=== PATIENT | female | born 1970 | race Two or more races ===

== ENCOUNTER 2016-06-21 16:16 | Inpatient (IN) | payer MEDICARE, MEDICAID ==
--- NOTE | 2016-06-21 16:27 | ED Physician Chart ---
Chief Complaint/HPI - Patient Information Date Seen:: 06/21/16 Time Seen:: 16:22 Chief Complaint:: difficult behavior and ?abd pain History of Present Illness:: pt sent from psych facility for difficult behavior. was stiking out at staff. she also c/o abd pains earlier today. no known fever nor n/v/d. has a colostomy ..uncertain why it was placed. pt seems to speak no burkinan. unclear what is current mental state but she seems mostly cooperative on arrival. abd doesnt seem tndr and ostomy site looks clean and noninfected. Historian:: Patient Review of Systems - Review of Systems General/Constitutional: No fever, No chills, No weight loss, No weakness, No diaphoresis, No edema, No loss of appetite Skin: No skin lesions, No rash, No bruising Head: No headache, No light-headedness Eyes: No loss of vision, No pain, No diplopia ENT: No earache, No nasal drainage, No sore throat, No tinnitus Neck: No neck pain, No swelling, No thyromegaly, No stiffness, No mass noted Cardio Vascular: No chest pain, No palpitations, No PND, No orthopnea, No edema Pulmonary: No SOB, No cough, No sputum, No wheezing GI: No nausea, No vomiting, No diarrhea, Pain (??), No melena, No hematochezia, No constipation, No hematemesis G/U: No dysuria, No frequency, No hematuria Musculoskeletal: No bone or joint pain, No back pain, No muscle pain Endocrine: No polyuria, No polydipsia Psychiatric: Prior psych history, No depression, No anxiety, No suicidal ideation, Other (aggressive behavior) Hematopoietic: No bruising, No lymphadenopathy Allergic/Immuno: No urticaria, No angioedema Neurological: No syncope, No focal symptoms, No weakness, No paresthesia, No headache, No seizure, No dizziness, No confusion, No vertigo Past Medical History - Past Medical History Past Medical History: Asthma/COPD, Dyslipidemia, PUD/GERD, Other (pt cant give hx. unclear why she had colostomy. anemia, low na) Social History: Care Facility Surgical History: other (colostomy) Psychiatricy History: Schizophrenia Medication: Reviewed Family Medical History - Family Member Mother History Unknown: Yes Ethnicity: Non- Living Status: Unknown Other Medical History: Patient unable to give information due to her condition, confused and disoriented. Physical Exam - Physical Examination General/Constitutional: Awake, Well-developed, well-nourished, Alert, No distress, Non-toxic appearing, Ambulatory Other Gen/Cons comments:: pt seems alert and oriented but language barrier limits hx... Head: Atraumatic Eyes: Lids, conjuctiva normal, PERRL, EOMI Skin: Nl inspection, No rash, No skin lesions, No ecchymosis, Well hydrated, No lymphadenopathy ENMT: External ears, nose nl, Nasal exam nl, Lips, teeth, gums nl Neck: Nontender, Full ROM w/o pain, No JVD, No nuchal rigidity, No bruit, No mass, No stridor Respiratory: Nl effort/Exclusion, Clear to Auscultation, No Wheeze/Rhonchi/Rales Cardio Vascular: RRR, No murmur, gallop, rubs, NL S1 S2 GI: No tenderness/rebounding/guarding, No organomegaly, No hernia, Normal BS's, Nondistended, No mass/bruits, No McBurney tenderness : No CVA tenderness Extremities: No tenderness or effusion, Full ROM, normal strength in all extremities, No edema, Normal digits & nails Neuro/Psych: Alert/oriented, DTR's symmetric, Normal sensory exam, Normal motor strength, Judgement/insight normal, Mood normal, Normal gait, No focal deficits Misc: normal gait, Normal back, No paraspinal tenderness Labs/Radiology/EKG Results - Lab Results Results: Laboratory Tests 06/21/16 06/21/16 06/21/16 16:29 16:29 16:32 WBC 8.8 RBC 4.70 Hgb 13.3 Hct 38.6 MCV 82.1 MCH 28.3 MCHC Differential 34.5 RDW 14.0 Plt Count 330 MPV 7.4 Neutrophils % 50.4 Lymphocytes % 41.1 Monocytes % 5.3 Eosinophils % 2.3 Basophils % 0.9 Sodium Potassium Chloride Carbon Dioxide Anion Gap BUN Creatinine Est GFR ( Amer) Est GFR (Non-Af Amer) BUN/Creatinine Ratio Glucose Calcium Magnesium Total Bilirubin AST ALT Alkaline Phosphatase Ammonia Creatine Kinase Troponin I B-Natriuretic Peptide Total Protein Albumin Globulin Albumin/Globulin Ratio Triglycerides Cholesterol LDL Cholesterol Direct HDL Cholesterol Amylase Lipase Vitamin B12 Folic Acid TSH Urine Source CLEAN C Urine Color YELLOW Urine Clarity CLEAR Urine pH 6.0 Ur Specific [place] 1.010 Urine Protein NEGATIVE Urine Glucose (UA) NEGATIVE Urine Ketones NEGATIVE Urine Blood NEGATIVE Urine Nitrate NEGATIVE Urine Bilirubin NEGATIVE Urine Urobilinogen 0.2 Ur Leukocyte Esterase NEGATIVE Urine RBC NONE SEEN Urine WBC NONE SEEN Ur Epithelial Cells NONE SEEN Urine Bacteria NONE SEEN Urine Test NEGATIVE RPR Hepatitis A IgM Ab Hep Bs Antigen Hep B Core IgM Ab Hepatitis C Antibody 06/21/16 06/21/16 06/21/16 16:32 16:32 16:32 WBC RBC Hgb Hct MCV MCH MCHC Differential RDW Plt Count MPV Neutrophils % Lymphocytes % Monocytes % Eosinophils % Basophils % Sodium 136 Potassium 4.1 Chloride 109 H Carbon Dioxide 24.0 Anion Gap 7.1 BUN 20 Creatinine 0.9 Est GFR ( Amer) > 60.0 Est GFR (Non-Af Amer) > 60.0 BUN/Creatinine Ratio 22.2 Glucose 114 H Calcium 9.2 Magnesium Total Bilirubin 0.2 L AST 10 L ALT 8 Alkaline Phosphatase 101 Ammonia Creatine Kinase Troponin I B-Natriuretic Peptide Total Protein 6.9 Albumin 4.0 Globulin 2.9 Albumin/Globulin Ratio 1.4 Triglycerides 180 H Cholesterol 160 LDL Cholesterol Direct 100 HDL Cholesterol 43 Amylase Lipase Vitamin B12 Folic Acid TSH 0.41 Urine Source Urine Color Urine Clarity Urine pH Ur Specific [place] Urine Protein Urine Glucose (UA) Urine Ketones Urine Blood Urine Nitrate Urine Bilirubin Urine Urobilinogen Ur Leukocyte Esterase Urine RBC Urine WBC Ur Epithelial Cells Urine Bacteria Urine Test RPR Hepatitis A IgM Ab Negative Hep Bs Antigen Negative Hep B Core IgM Ab Negative Hepatitis C Antibody 0.1 06/21/16 06/21/16 06/21/16 16:32 16:32 16:32 WBC RBC Hgb Hct MCV MCH MCHC Differential RDW Plt Count MPV Neutrophils % Lymphocytes % Monocytes % Eosinophils % Basophils % Sodium Potassium Chloride Carbon Dioxide Anion Gap BUN Creatinine Est GFR ( Amer) Est GFR (Non-Af Amer) BUN/Creatinine Ratio Glucose Calcium Magnesium Total Bilirubin AST ALT Alkaline Phosphatase Ammonia Creatine Kinase 65 Troponin I B-Natriuretic Peptide Total Protein Albumin Globulin Albumin/Globulin Ratio Triglycerides Cholesterol LDL Cholesterol Direct HDL Cholesterol Amylase 45 Lipase 98 H Vitamin B12 Folic Acid TSH Urine Source Urine Color Urine Clarity Urine pH Ur Specific [place] Urine Protein Urine Glucose (UA) Urine Ketones Urine Blood Urine Nitrate Urine Bilirubin Urine Urobilinogen Ur Leukocyte Esterase Urine RBC Urine WBC Ur Epithelial Cells Urine Bacteria Urine Test RPR NONREACTIVE Hepatitis A IgM Ab Hep Bs Antigen Hep B Core IgM Ab Hepatitis C Antibody 06/21/16 06/23/16 06/23/16 16:32 06:30 06:30 WBC 7.5 RBC 4.65 Hgb 13.0 Hct 38.3 MCV 82.3 MCH 28.0 MCHC Differential 34.0 RDW 14.1 Plt Count 330 MPV 7.9 Neutrophils % 50.2 Lymphocytes % 39.0 Monocytes % 6.4 Eosinophils % 3.6 Basophils % 0.8 Sodium 140 Potassium 4.2 Chloride 115 H Carbon Dioxide 24.7 Anion Gap 4.5 L BUN 19 Creatinine 0.8 Est GFR ( Amer) > 60.0 Est GFR (Non-Af Amer) > 60.0 BUN/Creatinine Ratio 23.8 Glucose 95 Calcium 9.4 Magnesium 1.9 Total Bilirubin 0.3 AST 11 L ALT 9 Alkaline Phosphatase 97 Ammonia Creatine Kinase Troponin I 0.01 B-Natriuretic Peptide Total Protein 6.5 Albumin 3.8 Globulin 2.7 Albumin/Globulin Ratio 1.4 Triglycerides Cholesterol LDL Cholesterol Direct HDL Cholesterol Amylase Lipase Vitamin B12 Folic Acid TSH Urine Source Urine Color Urine Clarity Urine pH Ur Specific [place] Urine Protein Urine Glucose (UA) Urine Ketones Urine Blood Urine Nitrate Urine Bilirubin Urine Urobilinogen Ur Leukocyte Esterase Urine RBC Urine WBC Ur Epithelial Cells Urine Bacteria Urine Test RPR Hepatitis A IgM Ab Hep Bs Antigen Hep B Core IgM Ab Hepatitis C Antibody 06/23/16 06/23/16 06/23/16 06:30 06:30 06:30 WBC RBC Hgb Hct MCV MCH MCHC Differential RDW Plt Count MPV Neutrophils % Lymphocytes % Monocytes % Eosinophils % Basophils % Sodium Potassium Chloride Carbon Dioxide Anion Gap BUN Creatinine Est GFR ( Amer) Est GFR (Non-Af Amer) BUN/Creatinine Ratio Glucose Calcium Magnesium Total Bilirubin AST ALT Alkaline Phosphatase Ammonia 52 Creatine Kinase Troponin I B-Natriuretic Peptide 9.2 Total Protein Albumin Globulin Albumin/Globulin Ratio Triglycerides Cholesterol LDL Cholesterol Direct HDL Cholesterol Amylase Lipase Vitamin B12 425 Folic Acid 12.3 TSH Urine Source Urine Color Urine Clarity Urine pH Ur Specific [place] Urine Protein Urine Glucose (UA) Urine Ketones Urine Blood Urine Nitrate Urine Bilirubin Urine Urobilinogen Ur Leukocyte Esterase Urine RBC Urine WBC Ur Epithelial Cells Urine Bacteria Urine Test RPR Hepatitis A IgM Ab Hep Bs Antigen Hep B Core IgM Ab Hepatitis C Antibody 06/23/16 06/26/16 06/26/16 06:30 05:56 05:56 WBC 7.5 RBC 4.63 Hgb 12.8 Hct 38.2 MCV 82.5 MCH 27.5 MCHC Differential 33.4 RDW 14.0 Plt Count 276 MPV 8.0 Neutrophils % 59.2 Lymphocytes % 30.4 Monocytes % 6.6 Eosinophils % 3.3 Basophils % 0.5 Sodium 139 Potassium 3.9 Chloride 112 H Carbon Dioxide 26.1 Anion Gap 4.8 L BUN 20 Creatinine 0.8 Est GFR ( Amer) > 60.0 Est GFR (Non-Af Amer) > 60.0 BUN/Creatinine Ratio 25.0 Glucose 106 H Calcium 9.6 Magnesium 2.0 Total Bilirubin AST ALT Alkaline Phosphatase Ammonia Creatine Kinase Troponin I B-Natriuretic Peptide Total Protein Albumin Globulin Albumin/Globulin Ratio Triglycerides Cholesterol LDL Cholesterol Direct HDL Cholesterol Amylase Lipase 80 Vitamin B12 Folic Acid TSH Urine Source Urine Color Urine Clarity Urine pH Ur Specific [place] Urine Protein Urine Glucose (UA) Urine Ketones Urine Blood Urine Nitrate Urine Bilirubin Urine Urobilinogen Ur Leukocyte Esterase Urine RBC Urine WBC Ur Epithelial Cells Urine Bacteria Urine Test RPR Hepatitis A IgM Ab Hep Bs Antigen Hep B Core IgM Ab Hepatitis C Antibody 06/26/16 05:56 WBC RBC Hgb Hct MCV MCH MCHC Differential RDW Plt Count MPV Neutrophils % Lymphocytes % Monocytes % Eosinophils % Basophils % Sodium Potassium Chloride Carbon Dioxide Anion Gap BUN Creatinine Est GFR ( Amer) Est GFR (Non-Af Amer) BUN/Creatinine Ratio Glucose Calcium Magnesium Total Bilirubin AST ALT Alkaline Phosphatase Ammonia 64 H Creatine Kinase Troponin I B-Natriuretic Peptide Total Protein Albumin Globulin Albumin/Globulin Ratio Triglycerides Cholesterol LDL Cholesterol Direct HDL Cholesterol Amylase Lipase Vitamin B12 Folic Acid TSH Urine Source Urine Color Urine Clarity Urine pH Ur Specific [place] Urine Protein Urine Glucose (UA) Urine Ketones Urine Blood Urine Nitrate Urine Bilirubin Urine Urobilinogen Ur Leukocyte Esterase Urine RBC Urine WBC Ur Epithelial Cells Urine Bacteria Urine Test RPR Hepatitis A IgM Ab Hep Bs Antigen Hep B Core IgM Ab Hepatitis C Antibody - Radiology Results Results: ct abd/p- nad, massive stool ? constipation ED Septic Shock - . Is Septic Shock (SBP<90, OR Lactate>4 mmol\L) present?: No Reassessment (Disposition) - Reassessment Reassessment:: case dw dr camp who is admitting to med/sx floor. Reassessment Condition:: Unchanged - Diagnosis Diagnosis:: 1 abdominal pain 2 elevated lipase r/o pancreatitis 3 constipation/ ?fecal impaction 4 psychiatric issues/difficult behavior - Patient Disposition Admitted to:: Med/Surg Condition at Disposition:: Unchanged ED Discharge Plan - Patient Disposition Admit/Discharge/Transfer: Acute Care w/in this hosp Condition at Disposition: Stable
[2016-06-21] MEDS ORDERED: Haloperidol Lactate 5 mg/mL 1mL Vial IM ONE (16:32)
[2016-06-21] MEDS ORDERED: Haloperidol Lactate 5 mg/mL 1mL Vial IM PRN (16:32)
[2016-06-21 16:40] LABS: % BASOPHILS 0.9 % (0.0-2.0); % EOSINOPHILS 2.3 % (0.0-5.0); % LYMPHOCYTES 41.1 % (20.0-50.0); % MONOCYTES 5.3 % (2.0-10.0); % NEUTROPHILS 50.4 % (40.0-80.0); HEMATOCRIT 38.6 % (35.0-45.0); HEMOGLOBIN 13.3 gm/dL (11.7-15.5); MEAN CELL VOLUME 82.1 fl (81-100); MEAN CORPUSCULAR HEMOGLOBIN 28.3 pg (27.0-31.0); MEAN CORPUSCULAR HGB CONC 34.5 pg (28.0-36.0); MEAN PLATELET VOLUME 7.4 fl; NEUTROPHILE ABSOLUTE 4.4 Th/cmm (1.8-8.0); PLATELET COUNT 330 Th/cmm (150-400); WHITE BLOOD COUNT 8.8 Th/cmm (4.8-10.8)
[2016-06-21] MEDS ORDERED: Haloperidol Lactate 5 mg/mL 1mL Vial ONE (16:47)
[2016-06-21 16:59] LABS: URINE BILIRUBIN NEGATIVE (NEGATIVE); URINE BLOOD NEGATIVE (NEGATIVE); URINE COLOR YELLOW; URINE GLUCOSE (UA) NEGATIVE (NEGATIVE); URINE KETONE NEGATIVE (NEGATIVE); URINE PROTEIN NEGATIVE (NEGATIVE); URINE UROBILINOGEN 0.2 E.U./dL (0.2 - 1.0)
[2016-06-21 17:00] LABS: URINE BACTERIA NONE SEEN /hpf (NONE SEEN); URINE EPITHELIAL CELLS NONE SEEN /lpf (FEW); URINE RBC NONE SEEN /hpf (0-5); URINE WBC NONE SEEN /hpf (0-5)
[2016-06-21 17:16] LABS: ALB/GLOB RATIO 1.4 (1.0-1.8); ALKALINE PHOSPHATASE 101 U/L (34-104); ANION GAP 7.1 (7.0-16.0); BILIRUBIN,TOTAL 0.2 mg/dL (0.3-1.0); BUN - UREA NITROGEN 20 mg/dL (7-25); BUN/CREATININE RATIO 22.2; CALCIUM SERUM 9.2 mg/dL (8.6-10.3); CHLORIDE 109 mEq/L (98-107); CHOLESTEROL 160 mg/dL (<200); CREATININE - SERUM 0.9 mg/dL (0.6-1.2); GLUCOSE 114 mg/dL (70-105); POTASSIUM SERUM 4.1 mEq/L (3.5-5.1); SGOT 10 U/L (13-39); SGPT/ALT 8 U/L (7-52); SODIUM SERUM 136 mEq/L (136-145); TRIGLYCERIDES 180 mg/dL (<150)
[2016-06-21] MEDS ORDERED: Sodium Chloride 0.9% 1,000 ML IV ONE (17:32)
[2016-06-21 17:50] LABS: AMYLASE SERUM 45 U/L (29-103)
[2016-06-21] MEDS ORDERED: Non-Formulary Item 1 EA (Mylanta 30 ML) PO PRN (19:27)
[2016-06-21] MEDS ORDERED: Magnesium Hydroxide (MOM) 30 mL UDC PO PRN (19:27)
[2016-06-21] MEDS ORDERED: D5-0.45NS 1,000 ML IV SCH (19:30)
[2016-06-21] MEDS ORDERED: Ipratropium Neb 0.5 mg/2.5 mL UD HHN PRN (19:30)
[2016-06-21] MEDS ORDERED: Albuterol Nebulizer 2.5mg/3mL HHN PRN (19:30)
[2016-06-21] MEDS ORDERED: Morphine Sulfate 2 mg/mL 1mL Syr IVP PRN (19:32)
[2016-06-21] MEDS ORDERED: Maalox 30 mL Cup PO PRN (19:32)
[2016-06-21] MEDS ORDERED: Non-Formulary Item 1 EA (Trazodone Hcl [Trazodone Hcl] 100 MG) PO SCH (21:00)
[2016-06-21] MEDS ORDERED: FENOFIBRATE NANOCRYSTALLIZED 48 MG PO SCH (21:00)
[2016-06-21 22:39] VITALS: BP 143/82
[2016-06-22] MEDS: Levothyroxine 0.125 Mg Tab PO SCH (06:42)
[2016-06-22] MEDS: Multivitamin w/ Minerals Tab PO SCH (08:21)
[2016-06-22] MEDS: Benztropine 1 MG TAB PO SCH ×2 (08:21→16:07)
[2016-06-22] MEDS ORDERED: LEVETIRACETAM 500 MG PO SCH (09:00)
[2016-06-22] MEDS ORDERED: Non-Formulary Item 1 EA (Cholecalciferol (Vitamin D3) [Vitamin D3] 1 TAB) PO SCH (09:00)
[2016-06-22 09:22] LABS: HEP B CORE IGM Negative (Negative); HEP C ANTIBODY 0.1 s/co ratio (0.0-0.9)
--- NOTE | 2016-06-22 09:58 | Diagnostic Imaging Report ---
CT abdomen and pelvis without intravenous contrast Indication: Abdominal pain Comparison: None, Technique: Axial images were obtained from the lung bases to the bilateral proximal femurs without IV contrast. Coronal reconstructions were made. total DLP: [id number], [id number] FINDINGS: Hypoventilatory and atelectatic changes of the lung bases are noted. Exam is limited due to motion. Assessment of the solid organs is also limited due to lack of IV contrast. No evidence of focal hepatic, splenic, or pancreatic lesions. No focal adrenal lesions. No evidence of hydronephrosis or nephrolithiasis. Postsurgical changes of the sigmoid colon region are noted. A left lower quadrant ostomy is noted. There is massive stool throughout the colon including within the left lower quadrant ostomy. The Appendix is not visualized. Postsurgical changes of midline anterior abdominal wall is also noted. No free air or free fluid. The osseous structures demonstrate no acute abnormalities. IMPRESSION: Massive amount of stool with left lower quadrant ostomy with massive amount of stool within the ostomy. Please correlate clinically for chronic constipation Postsurgical changes with evidence of prior sigmoidectomy.
--- NOTE | 2016-06-22 19:54 | History & Physical ---
ADMIT DATE: 06/22/2016 CHIEF COMPLAINT: Abdominal pain. HISTORY OF PRESENT ILLNESS: This is a 45-year-old old [place] female with history of seizure, asthma, hypercholesterolemia, schizoaffective disorder, obesity, previous abdominal surgery with colostomy, was admitted from nursing facility secondary to abdominal pain. The patient, apparently not taking care of herself and was complaining of severe pain. The patient was evaluated in the ER and admitted for further management. The patient is not a best historian. PAST MEDICAL HISTORY: As mentioned in history present illness. PAST SURGICAL HISTORY: Previous abdominal surgery. ALLERGIES: No known drug allergies. MEDICATIONS: The patient is on Tylenol, Cogentin, vitamin C, Colace, Tricor, Keppra, Synthroid, milk of magnesium, multivitamins, Mylanta, trazodone and clozapine. FAMILY HISTORY: Noncontributory. SOCIAL HISTORY: This is limited. REVIEW OF SYSTEMS: This is again limited. The patient is not cooperative, not answering any questions, cannot quite sit still. There is a sister, ____ Kai, at [phone]; ____ SHANEKA, . We will also try to get information from nursing staff at [facility], as well as from Dr. Cohen who normally follows the patient at nursing facility. PHYSICAL EXAMINATION: VITAL SIGNS: Blood pressure 130/94, respirations 18, pulse 90, temperature 97.4. GENERAL: Middle-aged female, morbidly obese. NECK: Supple. No mass. LUNGS: Equal breath sounds with few rhonchi. HEART: Regular rate rhythm without appreciable murmurs. ABDOMEN: Soft, nontender, globular. Positive colostomy in place. EXTREMITIES: Positive excoriations. NEUROLOGIC: Limited. LABORATORY DATA: WBC 8.8, hemoglobin 13.3, platelets 330. Sodium 136, potassium 4.1, BUN 20, creatinine 0.9, blood sugar was 114 and AST and ALT was 10 and 8, triglycerides 180, lipase 98. UA essentially negative. ASSESSMENT AND PLAN: Abdominal pain, mild rhabdomyolysis, constipation, status post colostomy, vitamin D deficiency, hypercholesterolemia, schizoaffective disorder, seizure, asthma, obesity, hypothyroidism. We will continue the patient on IV hydration and proton pump inhibitor. We will refer the patient to GI. We will review the patient's medications. We will also refer the patient to Psychiatry. We will keep the patient 1 to 1 for now secondary to instability. [facility]# [id number]
[2016-06-22] MEDS: Fenofibrate, Micronized 134 mg Cap PO SCH (21:00)
--- NOTE | 2016-06-22 22:25 | Admit Criteria Form ---
Admit Criteria Forms - Admit Criteria Diagnosis: ABDOMINAL PAIN Clinical Indications for Admission to Inpatient Care (Place 'X' for any and all applicable criteria): Admission is indicated for ANY ONE of the following(1)(2)(3)(4)(5): [X]I. Inpatient admission required rather than observation care (Also use Abdominal Pain: Observation Care, as appropriate) because of ANY ONE of the following: [ ]a) Severe pain requiring acute inpatient management [ ]b) Identification of etiology/finding that requires inpatient care (eg, aortic dissection, free air) [ ]c) Absent bowel sounds with complete ileus(6) [ ]d) Suspected toxic megacolon [ ]e) Severe electrolyte abnormalities requiring inpatient care [ ]f) High fever or infection requiring inpatient admission as indicated by ANY ONE of following(7)(8): [ ] i) Appropriate outpatient or observational care antimicrobial treatment unavailable, not effective, or not feasible [ ] ii) Documented bacteremia [ ] iii) Temperature > 104.9 degrees F (oral) [ ] iv) T >103.1 F (oral) or < 96.8 F(rectal) that does not respond to all emergency treatment measures [ ]g) Signs of intestinal obstruction [B] [ ]h) Hemodynamic instability [ ]i) IV fluid to replace significant ongoing losses (greater than 3 L/m2 per day) (12)(13) [ ]j) Percutaneous or open drainage (eg, abscess, biliary tract ) procedures [ ]k) Parenteral nutrition regimen that must be implemented on inpatient basis [X]l) Other condition,treatment or monitoring requiring inpatient admission. [ ]II. Peritoneal signs present [ ]III. Surgery needed that cannot be performed on an ambulatory basis. [ ]IV. Evaluation requires patient to not eat or drink for extended period ( eg, more than 24 hours). [ ]V. Contraindications and/or Inappropriate clinical situations for Observational Care in patients with abdominal pain, when ANY ONE of the following is required: [ ]a) Thorough evaluation is required to prevent catastrophic events due to delays in diagnosing (e.g.Mesenteric ischemia) 1,3 [ ]b) Patient with severe pathology or with chronic symptoms unlikely to improve in the ED stay (3) [ ]. General contraindications and/or Inappropriate clinical situations for Observational Care in patients with abdominal pain, when ANY ONE of the following is required: [ ]a) Prediction of prolongation of LOS based on ANY ONE of the following may be considered as a contraindication for observational care 2, 3, 4, 5, 6, 7, 8, 9, 10, 11 [ ]i) Age > 65 yrs. [ ]ii) Patient arriving by ambulance [ ]iii) Patient with high acuity [ ]iv) Patient requiring vital sign monitoring [ ]v) Patient on IV medication [ ]b) Systolic blood pressures 180mmHg 3,12 [ ]c) Patient with altered mental status including delirium and other alteration of consciousness, (3) [ ]d) Patient whose discharge disposition will be to a [facility] home or rehabilitation home should not be managed in Emergency Department Observation Unit. CMS rule requires 3 days hospital stay before such placement.3,13 [ ]e) Patient with failure to thrive due to broad array of etiologies 3,16,17 [ ]f) Inability to ambulate 3,14 Extended stay beyond goal length of stay may be needed for(2)(3): [ ]a) Persistent abdominal pain with suspected intra-abdominal process [ ]b) Diagnosed condition requiring continued stay (e.g., pancreatitis, complicated diverticulitis) [ ]c) Surgery (e.g., colectomy) The original [facility] content created by [employer] has been revised. The portions of the content which have been revised are identified through the use of italic text or in bold, and [facility] has neither reviewed nor approved the modified material.All other unmodified content is copyright [facility] [employer]. Please see references footnoted in the original [facility] edition 2016 Admit Criteria Met?: Yes
--- NOTE | 2016-06-23 04:27 | Consultation ---
DATE OF CONSULTATION: 06/22/2016 GASTROENTEROLOGY CONSULTATION REQUESTING PHYSICIAN: Jules Oneal M.D. REASON FOR CONSULTATION: Abdominal pain. HISTORY OF PRESENT ILLNESS: This is a 45-year-old female with history of psychiatric disorder, referred from a psychiatric facility to the ER for complaints of abdominal pain. She had a CT of the abdomen and pelvis that showed copious amount of stools associated with her left lower quadrant colostomy. There are also some postsurgical changes of the sigmoid colon. The patient was admitted. She was perhaps given stool softeners. She had large bowel movements. Her pain is not resolved. She is tolerating an oral diet. She has had no nausea or vomiting here. She is otherwise a poor historian. It is unknown whether she has had a previous colonoscopy. It is also unknown why she had a diverting colostomy. PAST MEDICAL HISTORY: As above. MEDICATIONS: Here are Tylenol p.r.n., Maalox p.r.n., albuterol p.r.n., vitamin C, Cogentin, Clozapine, Colace once daily, Tricor, adjuvant p.r.n., Keppra, Synthroid, Ativan p.r.n., milk of magnesia p.r.n., mineral oil daily, morphine p.r.n., Protonix, MiraLax, trazodone, and vitamin D. ALLERGIES: No known drug allergies. SOCIAL HISTORY: No recent tobacco, alcohol, or drugs. FAMILY HISTORY: Noncontributory. REVIEW OF SYSTEMS: A comprehensive 12-point review of systems was conducted, but it is only positive for those signs and symptoms present in history present illness. PHYSICAL EXAMINATION: VITAL SIGNS: Temperature of 97.4, blood pressure is 132/94, pulse is 90, and respirations 18, and O2 sats 100%. GENERAL: The patient is well-developed, well-nourished female in no acute distress. HEENT: Sclerae nonicteric. Oropharynx is clear. CARDIOVASCULAR: Regular rate and rhythm. LUNGS: Clear to auscultation bilaterally. ABDOMEN: Soft and intact. Left lower quadrant colostomy, draining mild stool. EXTREMITIES: No clubbing, cyanosis, or edema. RECTAL: Deferred. LABORATORY DATA AND IMAGING: Complete blood count is normal. Creatinine is 0.9. Liver enzymes are normal. Lipase was mildly elevated to 98. TSH normal. Urinalysis essentially clear. Hepatitis panel negative. CT of the abdomen and pelvis done last evening without contrast shows massive amount of stool within the left lower quadrant ostomy with massive amounts of stool within the colostomy, postsurgical changes with evidence of previous sigmoidectomy. IMPRESSION: 1. Abdominal pain, probably secondary to constipation, now improved after large bowel movement, also mildly elevated lipase, but CT did not show any pancreatitis. This may have been because of constipation. 2. History of diverting colostomy. 3. History of psychiatric disorder. RECOMMENDATIONS: 1. Stool softeners. 2. Check followup lipase level. 3. Check KUB in the morning to confirm that constipation is improved. 4. Diet as tolerated. 5. May need colonoscopy if not done previously, but outpatient workup is acceptable. Thank you, Dr. Jules Oneal, for involving us in the care of your patient. If you have any further questions, please call us. [facility]# [id number]
[2016-06-23] MEDS: Levothyroxine 0.125 Mg Tab PO SCH (06:36)
[2016-06-23 06:55] LABS: % BASOPHILS 0.8 % (0.0-2.0); % EOSINOPHILS 3.6 % (0.0-5.0); % MONOCYTES 6.4 % (2.0-10.0); % NEUTROPHILS 50.2 % (40.0-80.0); HEMATOCRIT 38.3 % (35.0-45.0); MEAN CELL VOLUME 82.3 fl (81-100); MEAN PLATELET VOLUME 7.9 fl; NEUTROPHILE ABSOLUTE 3.7 Th/cmm (1.8-8.0); PLATELET COUNT 330 Th/cmm (150-400); RED BLOOD COUNT 4.65 Mil/cmm (3.80-5.10); RED CELL DISTRIBUTION WIDTH 14.1 % (11.5-20.0); WHITE BLOOD COUNT 7.5 Th/cmm (4.8-10.8)
[2016-06-23 07:19] LABS: ALB/GLOB RATIO 1.4 (1.0-1.8); ALKALINE PHOSPHATASE 97 U/L (34-104); ANION GAP 4.5 (7.0-16.0); BILIRUBIN,TOTAL 0.3 mg/dL (0.3-1.0); BUN - UREA NITROGEN 19 mg/dL (7-25); BUN/CREATININE RATIO 23.8; CALCIUM SERUM 9.4 mg/dL (8.6-10.3); CARBON DIOXIDE 24.7 mEq/L (21.0-31.0); CHLORIDE 115 mEq/L (98-107); CREATININE - SERUM 0.8 mg/dL (0.6-1.2); GLUCOSE 95 mg/dL (70-105); MAGNESIUM 1.9 mg/dL (1.9-2.7); POTASSIUM SERUM 4.2 mEq/L (3.5-5.1); SGOT 11 U/L (13-39); SGPT/ALT 9 U/L (7-52); SODIUM SERUM 140 mEq/L (136-145)
[2016-06-23] MEDS: POLYETHYLENE GLYCOL 3350 17 GM PACK PO SCH (08:39)
[2016-06-23] MEDS: Vitamin D3 2,000 IU SGL PO SCH (08:39)
[2016-06-23] MEDS: Multivitamin w/ Minerals Tab PO SCH (08:39)
[2016-06-23] MEDS: Benztropine 1 MG TAB PO SCH ×2 (08:40→16:34)
--- NOTE | 2016-06-23 09:41 | Diagnostic Imaging Report ---
KUB History: Constipation Comparison: CT abdomen and pelvis on 06/21/2016 Findings: Moderate amount of stool is noted. Generalized gas-filled loops of bowel are again noted. IMPRESSION: Moderate amount amount of stool contents noted. The amount of stool contents has decreased since previous CT examination on 06/21/2016
--- NOTE | 2016-06-23 13:59 | Internal Medicine Prog Note ---
Internal Medicine Subjective - Subjective Patient seen and examined:: with staff, chart reviewed Patient is:: verbal, interactive Per staff patient is:: no adverse event, noncompliant, confused Internal Medicine Objective - Results Result Diagrams: 06/23/16 06:30 06/23/16 06:30 Recent Labs: Laboratory Last Values WBC 7.5 Th/cmm (4.8-10.8) 06/23/16 06:30 RBC 4.65 Mil/cmm (3.80-5.10) 06/23/16 06:30 Hgb 13.0 gm/dL (11.7-15.5) 06/23/16 06:30 Hct 38.3 % (35.0-45.0) 06/23/16 06:30 MCV 82.3 fl (81-100) 06/23/16 06:30 MCH 28.0 pg (27.0-31.0) 06/23/16 06:30 MCHC Differential 34.0 pg (28.0-36.0) 06/23/16 06:30 RDW 14.1 % (11.5-20.0) 06/23/16 06:30 Plt Count 330 Th/cmm (150-400) 06/23/16 06:30 MPV 7.9 fl 06/23/16 06:30 Neutrophils % 50.2 % (40.0-80.0) 06/23/16 06:30 Lymphocytes % 39.0 % (20.0-50.0) 06/23/16 06:30 Monocytes % 6.4 % (2.0-10.0) 06/23/16 06:30 Eosinophils % 3.6 % (0.0-5.0) 06/23/16 06:30 Basophils % 0.8 % (0.0-2.0) 06/23/16 06:30 Sodium 140 mEq/L (136-145) 06/23/16 06:30 Potassium 4.2 mEq/L (3.5-5.1) 06/23/16 06:30 Chloride 115 mEq/L (98-107) H 06/23/16 06:30 Carbon Dioxide 24.7 mEq/L (21.0-31.0) 06/23/16 06:30 Anion Gap 4.5 (7.0-16.0) L 06/23/16 06:30 BUN 19 mg/dL (7-25) 06/23/16 06:30 Creatinine 0.8 mg/dL (0.6-1.2) 06/23/16 06:30 Est GFR ( Amer) > 60.0 ml/min (>90) 06/23/16 06:30 Est GFR (Non-Af Amer) > 60.0 ml/min 06/23/16 06:30 BUN/Creatinine Ratio 23.8 06/23/16 06:30 Glucose 95 mg/dL (70-105) 06/23/16 06:30 Calcium 9.4 mg/dL (8.6-10.3) 06/23/16 06:30 Magnesium 1.9 mg/dL (1.9-2.7) 06/23/16 06:30 Total Bilirubin 0.3 mg/dL (0.3-1.0) 06/23/16 06:30 AST 11 U/L (13-39) L 06/23/16 06:30 ALT 9 U/L (7-52) 06/23/16 06:30 Alkaline Phosphatase 97 U/L (34-104) 06/23/16 06:30 Ammonia 52 umol/L (16-53) 06/23/16 06:30 Creatine Kinase 65 U/L (30-223) 06/21/16 16:32 Troponin I 0.01 ng/mL (0.01-0.05) 06/21/16 16:32 B-Natriuretic Peptide 9.2 pg/mL (5.0-100.0) 06/23/16 06:30 Total Protein 6.5 gm/dL (6.0-8.3) 06/23/16 06:30 Albumin 3.8 gm/dL (3.7-5.3) 06/23/16 06:30 Globulin 2.7 gm/dL 06/23/16 06:30 Albumin/Globulin Ratio 1.4 (1.0-1.8) 06/23/16 06:30 Triglycerides 180 mg/dL (<150) H 06/21/16 16:32 Cholesterol 160 mg/dL (<200) 06/21/16 16:32 LDL Cholesterol Direct 100 mg/dL (75-193) 06/21/16 16:32 HDL Cholesterol 43 mg/dL (23-92) 06/21/16 16:32 Amylase 45 U/L (29-103) 06/21/16 16:32 Lipase 80 U/L (11-82) 06/23/16 06:30 TSH 0.41 uIU/ml (0.34-5.60) 06/21/16 16:32 Urine Source CLEAN C 06/21/16 16:29 Urine Color YELLOW 06/21/16 16:29 Urine Clarity CLEAR (CLEAR) 06/21/16 16:29 Urine pH 6.0 06/21/16 16:29 Ur Specific [place] 1.010 (1.005-1.030) 06/21/16 16:29 Urine Protein NEGATIVE mg/dL (NEGATIVE) 06/21/16 16:29 Urine Glucose (UA) NEGATIVE mg/dL (NEGATIVE) 06/21/16 16:29 Urine Ketones NEGATIVE mg/dL (NEGATIVE) 06/21/16 16:29 Urine Blood NEGATIVE (NEGATIVE) 06/21/16 16:29 Urine Nitrate NEGATIVE (NEGATIVE) 06/21/16 16:29 Urine Bilirubin NEGATIVE (NEGATIVE) 06/21/16 16:29 Urine Urobilinogen 0.2 E.U./dL (0.2 - 1.0) 06/21/16 16:29 Ur Leukocyte Esterase NEGATIVE (NEGATIVE) 06/21/16 16:29 Urine RBC NONE SEEN /hpf (0-5) 06/21/16 16:29 Urine WBC NONE SEEN /hpf (0-5) 06/21/16 16:29 Ur Epithelial Cells NONE SEEN /lpf (FEW) 06/21/16 16:29 Urine Bacteria NONE SEEN /hpf (NONE SEEN) 06/21/16 16:29 Urine Test NEGATIVE 06/21/16 16:29 Hepatitis A IgM Ab Negative (Negative) 06/21/16 16:32 Hep Bs Antigen Negative (Negative) 06/21/16 16:32 Hep B Core IgM Ab Negative (Negative) 06/21/16 16:32 Hepatitis C Antibody 0.1 s/co ratio (0.0-0.9) 06/21/16 16:32 - Physical Exam Vitals and I&O: Vital Signs Temp 97.5 F 06/23/16 08:00 Pulse 69 06/23/16 08:00 Resp 18 06/23/16 08:00 BP 86/48 06/23/16 08:00 Pulse Ox 98 06/23/16 08:00 Intake & Output 06/22/16 06/23/16 06/23/16 18:59 06:59 18:59 Intake Total 800 500 Balance 800 500 Intake: Oral 800 500 Other: # Voids 6 4 # Bowel Movements 2 Stool Characteristics Soft Soft Soft Brown Brown Brown Active Medications: Current Medications Acetaminophen (Tylenol) 650 mg PO Q4HR PRN PRN Reason: PAIN OR TEMP >100.5 Stop: 08/20/16 19:26 Al Hydrox/Mg Hydrox/Simethicone (Maalox) 30 ml PO Q6HR PRN PRN Reason: Constipation Stop: 08/20/16 19:31 Albuterol Sulfate (Albuterol 2.5mg/3ml Neb Ud) 2.5 mg HHN Q2HRT PRN PRN Reason: Shortness of Breath or Wheeze Stop: 08/20/16 19:29 Ascorbic Acid (Vitamin C) 500 mg PO BID [facility] Stop: 08/21/16 08:59 Last Admin: 06/23/16 08:40 Dose: 500 mg Benztropine Mesylate (Cogentin) 2 mg PO BID [facility] Stop: 08/21/16 08:59 Last Admin: 06/23/16 08:40 Dose: 2 mg Clozapine (Clozaril) 400 mg PO [facility] PRN Reason: Protocol Stop: 08/20/16 20:59 Docusate Sodium (Colace) 100 mg PO DAILY [facility] Stop: 08/21/16 08:59 Last Admin: 06/23/16 08:40 Dose: 100 mg Fenofibrate (Tricor) 134 mg PO HS [facility] Stop: 08/21/16 20:59 Last Admin: 06/22/16 21:00 Dose: 134 mg Dextrose/Sodium Chloride (D5-0.45ns) 1,000 mls @ 80 mls/hr IV .[id number] [facility] Stop: 08/20/16 19:29 Last Admin: 06/21/16 21:36 Dose: 80 mls/hr Ipratropium [place] (Atrovent Neb 0.5mg/2.5ml) 0.5 mg HHN Q2HRT PRN PRN Reason: Shortness of Breath or Wheeze Stop: 08/20/16 19:29 Levetiracetam (Keppra) 500 mg PO BID [facility] Stop: 08/21/16 16:59 Last Admin: 06/23/16 08:40 Dose: 500 mg Levothyroxine Sodium (Synthroid) 0.125 mg PO QDAC [facility] Stop: 08/21/16 07:29 Last Admin: 06/23/16 06:36 Dose: 0.125 mg Lorazepam (Ativan) 1 mg PO Q6HR PRN; Protocol PRN Reason: Agitation Stop: 08/21/16 13:54 Magnesium Hydroxide (Milk Of Magnesia) 30 ml PO HS PRN PRN Reason: Constipation Stop: 08/20/16 19:26 Mineral Oil (Mineral Oil 30 Ml) 30 ml PO DAILY [facility] Stop: 08/22/16 08:59 Last Admin: 06/23/16 08:39 Dose: 30 ml Morphine Sulfate (Morphine) 2 mg IVP Q4HR PRN PRN Reason: Severe Pain Stop: 08/20/16 19:31 Pantoprazole Sodium (Protonix) 40 mg IVP BID [facility] Stop: 08/21/16 08:59 Last Admin: 06/23/16 08:39 Dose: 40 mg Polyethylene Glycol (Miralax) 17 gm PO DAILY [facility] Stop: 08/22/16 08:59 Last Admin: 06/23/16 08:39 Dose: 17 gm Trazodone HCl (Desyrel) 100 mg PO HS [facility] Stop: 08/21/16 20:59 Last Admin: 06/22/16 21:00 Dose: 100 mg Vitamin D (Vitamin D3) 2,000 iu PO DAILY [facility] Stop: 08/22/16 08:59 Last Admin: 06/23/16 08:39 Dose: 2,000 iu General: demented HEENT: NC/AT, PERRLA Neck: Supple, No JVD Lungs: congested Cardiovascular: RRR, Normal S1, Normal S2 Abdomen: soft non-tender, globular, positive bowel sound Extremities: excoriation Neurological: no change Internal Medicine Assmt/Plan - Assessment Assessment: abd pain mild rhabdo constipation sp colostomy vit d sad sz - Plan Plan: cont on iv abx gi consult iv ppi cont on aed dw monty
[2016-06-23] MEDS: Fenofibrate, Micronized 134 mg Cap PO SCH (22:11)
[2016-06-24] MEDS: Levothyroxine 0.125 Mg Tab PO SCH (06:54)
--- NOTE | 2016-06-24 09:02 | Progress Notes ---
DATE: 06/23/2016 IDENTIFICATION: The patient is a 45-year-old female admitted on voluntary status. HISTORY OF PRESENT ILLNESS: The patient has history of psychosis, diagnosis of schizophrenia versus schizoaffective disorder. She has history mood instability, irritability, and agitation. She is on conservatorship status. The patient was admitted for deterioration in medical as well as psychiatric status. She has been having bizarre behavior, yelling and planning with feces. She has been on trial of Clozaril. She reports she has been compliant with medication. During her shift on the medical floor, at times, she is agitated, pacing, wandering and other times she is calm and cooperative. The patient has no insight into her condition. She does not know where she is. PAST PSYCHIATRIC HISTORY: Prior treatment for depression and psychosis. PAST MEDICAL HISTORY: Status post small bowel obstruction, history of urinary tract infection, GERD, and seizures. CURRENT MEDICATIONS: Clozapine 400 mg at bedtime. SOCIAL HISTORY: She is conserved. She lives in shelter. MENTAL STATUS: Oriented to times and self. Speech is slow. Thought process tangential. Thought content positive for paranoid, delusional, DIFFERENTIAL DIAGNOSES: AXIS: Schizoaffective. PLAN: At this time, to titrate Clozaril 200 mg q.a.m. and mg at bedtime. To monitor for sedation. Continue current levels of supervision. She may not be good candidate for psychiatric unit given her colostomy. JOB# [id number]
[2016-06-24] MEDS: Vitamin D3 2,000 IU SGL PO SCH (09:20)
[2016-06-24] MEDS: Multivitamin w/ Minerals Tab PO SCH (09:20)
[2016-06-24] MEDS: Benztropine 1 MG TAB PO SCH ×2 (09:20→16:50)
[2016-06-24] MEDS: POLYETHYLENE GLYCOL 3350 17 GM PACK PO SCH (09:21)
--- NOTE | 2016-06-24 10:16 | Diagnostic Imaging Report ---
INDICATION: Abdominal pain FINDINGS: The bowel gas pattern is unremarkable. No abnormal masses or calcifications. IMPRESSION: Fecal loading. Otherwise unremarkable exam.
[2016-06-24 11:09] LABS: FOLIC ACID 12.3 ng/mL (>3.0)
--- NOTE | 2016-06-24 14:50 | Internal Medicine Prog Note ---
Internal Medicine Subjective - Subjective Patient seen and examined:: with staff, chart reviewed Patient is:: awake, verbal, interactive Per staff patient is:: no adverse event, confused Internal Medicine Objective - Results Result Diagrams: 06/23/16 06:30 06/23/16 06:30 Recent Labs: Laboratory Last Values WBC 7.5 Th/cmm (4.8-10.8) 06/23/16 06:30 RBC 4.65 Mil/cmm (3.80-5.10) 06/23/16 06:30 Hgb 13.0 gm/dL (11.7-15.5) 06/23/16 06:30 Hct 38.3 % (35.0-45.0) 06/23/16 06:30 MCV 82.3 fl (81-100) 06/23/16 06:30 MCH 28.0 pg (27.0-31.0) 06/23/16 06:30 MCHC Differential 34.0 pg (28.0-36.0) 06/23/16 06:30 RDW 14.1 % (11.5-20.0) 06/23/16 06:30 Plt Count 330 Th/cmm (150-400) 06/23/16 06:30 MPV 7.9 fl 06/23/16 06:30 Neutrophils % 50.2 % (40.0-80.0) 06/23/16 06:30 Lymphocytes % 39.0 % (20.0-50.0) 06/23/16 06:30 Monocytes % 6.4 % (2.0-10.0) 06/23/16 06:30 Eosinophils % 3.6 % (0.0-5.0) 06/23/16 06:30 Basophils % 0.8 % (0.0-2.0) 06/23/16 06:30 Sodium 140 mEq/L (136-145) 06/23/16 06:30 Potassium 4.2 mEq/L (3.5-5.1) 06/23/16 06:30 Chloride 115 mEq/L (98-107) H 06/23/16 06:30 Carbon Dioxide 24.7 mEq/L (21.0-31.0) 06/23/16 06:30 Anion Gap 4.5 (7.0-16.0) L 06/23/16 06:30 BUN 19 mg/dL (7-25) 06/23/16 06:30 Creatinine 0.8 mg/dL (0.6-1.2) 06/23/16 06:30 Est GFR ( Amer) > 60.0 ml/min (>90) 06/23/16 06:30 Est GFR (Non-Af Amer) > 60.0 ml/min 06/23/16 06:30 BUN/Creatinine Ratio 23.8 06/23/16 06:30 Glucose 95 mg/dL (70-105) 06/23/16 06:30 Calcium 9.4 mg/dL (8.6-10.3) 06/23/16 06:30 Magnesium 1.9 mg/dL (1.9-2.7) 06/23/16 06:30 Total Bilirubin 0.3 mg/dL (0.3-1.0) 06/23/16 06:30 AST 11 U/L (13-39) L 06/23/16 06:30 ALT 9 U/L (7-52) 06/23/16 06:30 Alkaline Phosphatase 97 U/L (34-104) 06/23/16 06:30 Ammonia 52 umol/L (16-53) 06/23/16 06:30 Creatine Kinase 65 U/L (30-223) 06/21/16 16:32 Troponin I 0.01 ng/mL (0.01-0.05) 06/21/16 16:32 B-Natriuretic Peptide 9.2 pg/mL (5.0-100.0) 06/23/16 06:30 Total Protein 6.5 gm/dL (6.0-8.3) 06/23/16 06:30 Albumin 3.8 gm/dL (3.7-5.3) 06/23/16 06:30 Globulin 2.7 gm/dL 06/23/16 06:30 Albumin/Globulin Ratio 1.4 (1.0-1.8) 06/23/16 06:30 Triglycerides 180 mg/dL (<150) H 06/21/16 16:32 Cholesterol 160 mg/dL (<200) 06/21/16 16:32 LDL Cholesterol Direct 100 mg/dL (75-193) 06/21/16 16:32 HDL Cholesterol 43 mg/dL (23-92) 06/21/16 16:32 Amylase 45 U/L (29-103) 06/21/16 16:32 Lipase 80 U/L (11-82) 06/23/16 06:30 Vitamin B12 425 pg/mL (211-946) 06/23/16 06:30 Folic Acid 12.3 ng/mL (>3.0) 06/23/16 06:30 TSH 0.41 uIU/ml (0.34-5.60) 06/21/16 16:32 Urine Source CLEAN C 06/21/16 16:29 Urine Color YELLOW 06/21/16 16:29 Urine Clarity CLEAR (CLEAR) 06/21/16 16:29 Urine pH 6.0 06/21/16 16:29 Ur Specific [place] 1.010 (1.005-1.030) 06/21/16 16:29 Urine Protein NEGATIVE mg/dL (NEGATIVE) 06/21/16 16:29 Urine Glucose (UA) NEGATIVE mg/dL (NEGATIVE) 06/21/16 16:29 Urine Ketones NEGATIVE mg/dL (NEGATIVE) 06/21/16 16:29 Urine Blood NEGATIVE (NEGATIVE) 06/21/16 16:29 Urine Nitrate NEGATIVE (NEGATIVE) 06/21/16 16:29 Urine Bilirubin NEGATIVE (NEGATIVE) 06/21/16 16:29 Urine Urobilinogen 0.2 E.U./dL (0.2 - 1.0) 06/21/16 16:29 Ur Leukocyte Esterase NEGATIVE (NEGATIVE) 06/21/16 16:29 Urine RBC NONE SEEN /hpf (0-5) 06/21/16 16:29 Urine WBC NONE SEEN /hpf (0-5) 06/21/16 16:29 Ur Epithelial Cells NONE SEEN /lpf (FEW) 06/21/16 16:29 Urine Bacteria NONE SEEN /hpf (NONE SEEN) 06/21/16 16:29 Urine Test NEGATIVE 06/21/16 16:29 RPR NONREACTIVE (NONREACTIVE) 06/21/16 16:32 Hepatitis A IgM Ab Negative (Negative) 06/21/16 16:32 Hep Bs Antigen Negative (Negative) 06/21/16 16:32 Hep B Core IgM Ab Negative (Negative) 06/21/16 16:32 Hepatitis C Antibody 0.1 s/co ratio (0.0-0.9) 06/21/16 16:32 - Physical Exam Vitals and I&O: Vital Signs Temp 97.5 F 06/24/16 08:00 Pulse 72 06/24/16 08:15 Resp 18 06/24/16 08:15 BP 125/76 06/24/16 08:00 Pulse Ox 98 06/24/16 08:15 Intake & Output 06/23/16 06/24/16 06/24/16 18:59 06:59 18:59 Intake Total 800 340 Balance 800 340 Intake: Oral 800 340 Other: # Voids 3 2 # Bowel Movements 1 1 Stool Characteristics Soft Soft Soft Brown Brown Brown Active Medications: Current Medications Acetaminophen (Tylenol) 650 mg PO Q4HR PRN PRN Reason: PAIN OR TEMP >100.5 Stop: 08/20/16 19:26 Al Hydrox/Mg Hydrox/Simethicone (Maalox) 30 ml PO Q6HR PRN PRN Reason: Constipation Stop: 08/20/16 19:31 Albuterol Sulfate (Albuterol 2.5mg/3ml Neb Ud) 2.5 mg HHN Q2HRT PRN PRN Reason: Shortness of Breath or Wheeze Stop: 08/20/16 19:29 Ascorbic Acid (Vitamin C) 500 mg PO BID [facility] Stop: 08/21/16 08:59 Last Admin: 06/24/16 09:20 Dose: 500 mg Benztropine Mesylate (Cogentin) 2 mg PO BID [facility] Stop: 08/21/16 08:59 Last Admin: 06/24/16 09:20 Dose: 2 mg Clozapine (Clozaril) 100 mg PO DAILY [facility] PRN Reason: Protocol Stop: 08/23/16 08:59 Last Admin: 06/24/16 09:30 Dose: 100 mg Clozapine (Clozaril) 400 mg PO HS [facility] PRN Reason: Protocol Stop: 08/22/16 20:59 Last Admin: 06/23/16 22:11 Dose: 400 mg Docusate Sodium (Colace) 100 mg PO DAILY [facility] Stop: 08/21/16 08:59 Last Admin: 06/24/16 09:20 Dose: 100 mg Fenofibrate (Tricor) 134 mg PO HS [facility] Stop: 08/21/16 20:59 Last Admin: 06/23/16 22:11 Dose: 134 mg Dextrose/Sodium Chloride (D5-0.45ns) 1,000 mls @ 80 mls/hr IV .[id number] [facility] Stop: 08/20/16 19:29 Last Admin: 06/21/16 21:36 Dose: 80 mls/hr Ipratropium [place] (Atrovent Neb 0.5mg/2.5ml) 0.5 mg HHN Q2HRT PRN PRN Reason: Shortness of Breath or Wheeze Stop: 08/20/16 19:29 Levetiracetam (Keppra) 500 mg PO BID [facility] Stop: 08/21/16 16:59 Last Admin: 06/24/16 09:21 Dose: 500 mg Levothyroxine Sodium (Synthroid) 0.125 mg PO QDAC [facility] Stop: 08/21/16 07:29 Last Admin: 06/24/16 06:54 Dose: 0.125 mg Lorazepam (Ativan) 1 mg PO Q6HR PRN; Protocol PRN Reason: Agitation Stop: 08/21/16 13:54 Magnesium Hydroxide (Milk Of Magnesia) 30 ml PO HS PRN PRN Reason: Constipation Stop: 08/20/16 19:26 Mineral Oil (Mineral Oil 30 Ml) 30 ml PO DAILY [facility] Stop: 08/22/16 08:59 Last Admin: 06/24/16 09:21 Dose: 30 ml Morphine Sulfate (Morphine) 2 mg IVP Q4HR PRN PRN Reason: Severe Pain Stop: 08/20/16 19:31 Pantoprazole Sodium (Protonix) 40 mg IVP BID [facility] Stop: 08/21/16 08:59 Last Admin: 06/24/16 09:21 Dose: 40 mg Polyethylene Glycol (Miralax) 17 gm PO DAILY [facility] Stop: 08/22/16 08:59 Last Admin: 06/24/16 09:21 Dose: 17 gm Trazodone HCl (Desyrel) 100 mg PO HS [facility] Stop: 08/21/16 20:59 Last Admin: 06/23/16 22:11 Dose: 100 mg Vitamin D (Vitamin D3) 2,000 iu PO DAILY [facility] Stop: 08/22/16 08:59 Last Admin: 06/24/16 09:20 Dose: 2,000 iu General: demented HEENT: NC/AT, PERRLA Neck: Supple, No JVD Lungs: congested Cardiovascular: RRR, Normal S1, Normal S2 Abdomen: globular, positive bowel sound Extremities: excoriation, contracture, other (colostomy) Internal Medicine Assmt/Plan - Assessment Assessment: abd pain mild rhabdo constipation sp colostomy vit d sad sz - Plan Plan: cont on iv abx gi consult iv ppi cont on aed dw rn
[2016-06-24] MEDS: Fenofibrate, Micronized 134 mg Cap PO SCH (21:15)
[2016-06-25] MEDS: Levothyroxine 0.125 Mg Tab PO SCH (06:55)
[2016-06-25] MEDS: Multivitamin w/ Minerals Tab PO SCH (09:54)
[2016-06-25] MEDS: Vitamin D3 2,000 IU SGL PO SCH (09:54)
[2016-06-25] MEDS: Benztropine 1 MG TAB PO SCH ×2 (09:54→17:47)
[2016-06-25] MEDS: POLYETHYLENE GLYCOL 3350 17 GM PACK PO SCH (09:54)
[2016-06-25] MEDS: Fenofibrate, Micronized 134 mg Cap PO SCH (21:41)
--- NOTE | 2016-06-25 21:55 | Internal Medicine Prog Note ---
Internal Medicine Subjective - Subjective Patient seen and examined:: with staff, chart reviewed, other (1 and 1) Patient is:: awake, non-verbal, non-interactive, eyes closed Per staff patient is:: no adverse event, no episodes of fall, poor appetite, noncompliant, confused Internal Medicine Objective - Results Result Diagrams: 06/23/16 06:30 06/23/16 06:30 Recent Labs: Laboratory Last Values WBC 7.5 Th/cmm (4.8-10.8) 06/23/16 06:30 RBC 4.65 Mil/cmm (3.80-5.10) 06/23/16 06:30 Hgb 13.0 gm/dL (11.7-15.5) 06/23/16 06:30 Hct 38.3 % (35.0-45.0) 06/23/16 06:30 MCV 82.3 fl (81-100) 06/23/16 06:30 MCH 28.0 pg (27.0-31.0) 06/23/16 06:30 MCHC Differential 34.0 pg (28.0-36.0) 06/23/16 06:30 RDW 14.1 % (11.5-20.0) 06/23/16 06:30 Plt Count 330 Th/cmm (150-400) 06/23/16 06:30 MPV 7.9 fl 06/23/16 06:30 Neutrophils % 50.2 % (40.0-80.0) 06/23/16 06:30 Lymphocytes % 39.0 % (20.0-50.0) 06/23/16 06:30 Monocytes % 6.4 % (2.0-10.0) 06/23/16 06:30 Eosinophils % 3.6 % (0.0-5.0) 06/23/16 06:30 Basophils % 0.8 % (0.0-2.0) 06/23/16 06:30 Sodium 140 mEq/L (136-145) 06/23/16 06:30 Potassium 4.2 mEq/L (3.5-5.1) 06/23/16 06:30 Chloride 115 mEq/L (98-107) H 06/23/16 06:30 Carbon Dioxide 24.7 mEq/L (21.0-31.0) 06/23/16 06:30 Anion Gap 4.5 (7.0-16.0) L 06/23/16 06:30 BUN 19 mg/dL (7-25) 06/23/16 06:30 Creatinine 0.8 mg/dL (0.6-1.2) 06/23/16 06:30 Est GFR ( Amer) > 60.0 ml/min (>90) 06/23/16 06:30 Est GFR (Non-Af Amer) > 60.0 ml/min 06/23/16 06:30 BUN/Creatinine Ratio 23.8 06/23/16 06:30 Glucose 95 mg/dL (70-105) 06/23/16 06:30 Calcium 9.4 mg/dL (8.6-10.3) 06/23/16 06:30 Magnesium 1.9 mg/dL (1.9-2.7) 06/23/16 06:30 Total Bilirubin 0.3 mg/dL (0.3-1.0) 06/23/16 06:30 AST 11 U/L (13-39) L 06/23/16 06:30 ALT 9 U/L (7-52) 06/23/16 06:30 Alkaline Phosphatase 97 U/L (34-104) 06/23/16 06:30 Ammonia 52 umol/L (16-53) 06/23/16 06:30 Creatine Kinase 65 U/L (30-223) 06/21/16 16:32 Troponin I 0.01 ng/mL (0.01-0.05) 06/21/16 16:32 B-Natriuretic Peptide 9.2 pg/mL (5.0-100.0) 06/23/16 06:30 Total Protein 6.5 gm/dL (6.0-8.3) 06/23/16 06:30 Albumin 3.8 gm/dL (3.7-5.3) 06/23/16 06:30 Globulin 2.7 gm/dL 06/23/16 06:30 Albumin/Globulin Ratio 1.4 (1.0-1.8) 06/23/16 06:30 Triglycerides 180 mg/dL (<150) H 06/21/16 16:32 Cholesterol 160 mg/dL (<200) 06/21/16 16:32 LDL Cholesterol Direct 100 mg/dL (75-193) 06/21/16 16:32 HDL Cholesterol 43 mg/dL (23-92) 06/21/16 16:32 Amylase 45 U/L (29-103) 06/21/16 16:32 Lipase 80 U/L (11-82) 06/23/16 06:30 Vitamin B12 425 pg/mL (211-946) 06/23/16 06:30 Folic Acid 12.3 ng/mL (>3.0) 06/23/16 06:30 TSH 0.41 uIU/ml (0.34-5.60) 06/21/16 16:32 Urine Source CLEAN C 06/21/16 16:29 Urine Color YELLOW 06/21/16 16:29 Urine Clarity CLEAR (CLEAR) 06/21/16 16:29 Urine pH 6.0 06/21/16 16:29 Ur Specific [place] 1.010 (1.005-1.030) 06/21/16 16:29 Urine Protein NEGATIVE mg/dL (NEGATIVE) 06/21/16 16:29 Urine Glucose (UA) NEGATIVE mg/dL (NEGATIVE) 06/21/16 16:29 Urine Ketones NEGATIVE mg/dL (NEGATIVE) 06/21/16 16:29 Urine Blood NEGATIVE (NEGATIVE) 06/21/16 16:29 Urine Nitrate NEGATIVE (NEGATIVE) 06/21/16 16:29 Urine Bilirubin NEGATIVE (NEGATIVE) 06/21/16 16:29 Urine Urobilinogen 0.2 E.U./dL (0.2 - 1.0) 06/21/16 16:29 Ur Leukocyte Esterase NEGATIVE (NEGATIVE) 06/21/16 16:29 Urine RBC NONE SEEN /hpf (0-5) 06/21/16 16:29 Urine WBC NONE SEEN /hpf (0-5) 06/21/16 16:29 Ur Epithelial Cells NONE SEEN /lpf (FEW) 06/21/16 16:29 Urine Bacteria NONE SEEN /hpf (NONE SEEN) 06/21/16 16:29 Urine Test NEGATIVE 06/21/16 16:29 RPR NONREACTIVE (NONREACTIVE) 06/21/16 16:32 Hepatitis A IgM Ab Negative (Negative) 06/21/16 16:32 Hep Bs Antigen Negative (Negative) 06/21/16 16:32 Hep B Core IgM Ab Negative (Negative) 06/21/16 16:32 Hepatitis C Antibody 0.1 s/co ratio (0.0-0.9) 06/21/16 16:32 - Physical Exam Vitals and I&O: Vital Signs Temp 97.9 F 06/25/16 16:00 Pulse 70 06/25/16 16:00 Resp 19 06/25/16 16:00 BP 96/49 06/25/16 16:00 Pulse Ox 98 06/25/16 16:00 Intake & Output 06/25/16 06/25/16 06/26/16 06:59 18:59 06:59 Intake Total 820 Balance 820 Intake: Oral 820 Other: # Voids 6 5 # Bowel Movements 0 1 Stool Characteristics Soft Active Medications: Current Medications Acetaminophen (Tylenol) 650 mg PO Q4HR PRN PRN Reason: PAIN OR TEMP >100.5 Stop: 08/20/16 19:26 Al Hydrox/Mg Hydrox/Simethicone (Maalox) 30 ml PO Q6HR PRN PRN Reason: Constipation Stop: 08/20/16 19:31 Albuterol Sulfate (Albuterol 2.5mg/3ml Neb Ud) 2.5 mg HHN Q2HRT PRN PRN Reason: Shortness of Breath or Wheeze Stop: 08/20/16 19:29 Ascorbic Acid (Vitamin C) 500 mg PO BID PENDING SALE TO [facility] Stop: 08/21/16 08:59 Last Admin: 06/25/16 17:47 Dose: 500 mg Benztropine Mesylate (Cogentin) 2 mg PO BID MANDEEP Stop: 08/21/16 08:59 Last Admin: 06/25/16 17:47 Dose: 2 mg Clozapine (Clozaril) 100 mg PO DAILY MANDEEP PRN Reason: Protocol Stop: 08/23/16 08:59 Last Admin: 06/24/16 09:30 Dose: 100 mg Clozapine (Clozaril) 400 mg PO HS MANDEEP PRN Reason: Protocol Stop: 08/22/16 20:59 Last Admin: 06/25/16 21:41 Dose: 400 mg Docusate Sodium (Colace) 100 mg PO DAILY MANDEEP Stop: 08/21/16 08:59 Last Admin: 06/25/16 09:54 Dose: 100 mg Fenofibrate (Tricor) 134 mg PO HS PENDING SALE TO [facility] Stop: 08/21/16 20:59 Last Admin: 04/16/17 21:41 Dose: 134 mg Ipratropium [place] (Atrovent Neb 0.5mg/2.5ml) 0.5 mg HHN Q2HRT PRN PRN Reason: Shortness of Breath or Wheeze Stop: 08/20/16 19:29 Levetiracetam (Keppra) 500 mg PO BID MANDEEP Stop: 08/21/16 16:59 Last Admin: 06/25/16 17:47 Dose: 500 mg Levothyroxine Sodium (Synthroid) 0.125 mg PO QDAC MANDEEP Stop: 08/21/16 07:29 Last Admin: 06/25/16 06:55 Dose: 0.125 mg Lorazepam (Ativan) 1 mg PO Q6HR PRN; Protocol PRN Reason: Agitation Stop: 08/21/16 13:54 Magnesium Hydroxide (Milk Of Magnesia) 30 ml PO HS PRN PRN Reason: Constipation Stop: 08/20/16 19:26 Mineral Oil (Mineral Oil 30 Ml) 30 ml PO DAILY MANDEEP Stop: 08/22/16 08:59 Last Admin: 06/25/16 09:54 Dose: 30 ml Morphine Sulfate (Morphine) 2 mg IVP Q4HR PRN PRN Reason: Severe Pain Stop: 08/20/16 19:31 Pantoprazole Sodium (Protonix) 40 mg IVP BID MANDEEP Stop: 08/21/16 08:59 Last Admin: 06/25/16 17:48 Dose: 40 mg Polyethylene Glycol (Miralax) 17 gm PO DAILY MANDEEP Stop: 08/22/16 08:59 Last Admin: 06/25/16 09:54 Dose: 17 gm Trazodone HCl (Desyrel) 100 mg PO HS MANDEEP Stop: 08/21/16 20:59 Last Admin: 06/25/16 21:41 Dose: 100 mg Vitamin D (Vitamin D3) 2,000 iu PO DAILY MANDEEP Stop: 08/22/16 08:59 Last Admin: 06/25/16 09:54 Dose: 2,000 iu General: demented HEENT: NC/AT, PERRLA Neck: Supple, No JVD Lungs: congested Cardiovascular: RRR, Normal S1, Normal S2 Abdomen: soft non-tender, globular, positive bowel sound Extremities: excoriation Neurological: no change, disorganized Internal Medicine Assmt/Plan - Assessment Assessment: abd pain mild rhabdo constipation sp colostomy vit d sad sz - Plan Plan: cont on iv abx gi consult iv ppi cont on aed dw rn
[2016-06-26 06:16] LABS: % BASOPHILS 0.5 % (0.0-2.0); % EOSINOPHILS 3.3 % (0.0-5.0); % LYMPHOCYTES 30.4 % (20.0-50.0); % MONOCYTES 6.6 % (2.0-10.0); % NEUTROPHILS 59.2 % (40.0-80.0); HEMATOCRIT 38.2 % (35.0-45.0); HEMOGLOBIN 12.8 gm/dL (11.7-15.5); MEAN CELL VOLUME 82.5 fl (81-100); MEAN CORPUSCULAR HEMOGLOBIN 27.5 pg (27.0-31.0); MEAN CORPUSCULAR HGB CONC 33.4 pg (28.0-36.0); NEUTROPHILE ABSOLUTE 4.5 Th/cmm (1.8-8.0); PLATELET COUNT 276 Th/cmm (150-400); RED BLOOD COUNT 4.63 Mil/cmm (3.80-5.10); WHITE BLOOD COUNT 7.5 Th/cmm (4.8-10.8)
[2016-06-26 06:39] LABS: ANION GAP 4.8 (7.0-16.0); BUN - UREA NITROGEN 20 mg/dL (7-25); CALCIUM SERUM 9.6 mg/dL (8.6-10.3); CARBON DIOXIDE 26.1 mEq/L (21.0-31.0); CHLORIDE 112 mEq/L (98-107); CREATININE - SERUM 0.8 mg/dL (0.6-1.2); GLUCOSE 106 mg/dL (70-105); POTASSIUM SERUM 3.9 mEq/L (3.5-5.1); SODIUM SERUM 139 mEq/L (136-145)
[2016-06-26] MEDS: Levothyroxine 0.125 Mg Tab PO SCH (06:44)
[2016-06-26] MEDS: Multivitamin w/ Minerals Tab PO SCH (08:34)
[2016-06-26] MEDS: Vitamin D3 2,000 IU SGL PO SCH (08:34)
[2016-06-26] MEDS: Benztropine 1 MG TAB PO SCH (08:35)
[2016-06-26] MEDS: POLYETHYLENE GLYCOL 3350 17 GM PACK PO SCH (08:35)
--- NOTE | 2016-06-26 23:26 | Discharge Summary ---
DATE OF DISCHARGE: 06/26/2016 CHIEF COMPLAINT: Abdominal pain. FINAL DIAGNOSES: Abdominal pain, rhabdomyolysis, status post colostomy, Vitamin D deficiency, schizoaffective disorder, seizure, obesity, constipation, elevated lipase. HISTORY: This is a 45-year-old [place]/ female with history of schizoaffective disorder, obesity, was brought in from a [facility] secondary to abdominal pain and discomfort. There was also redness in the colostomy area. The patient was admitted for further management. PHYSICAL EXAMINATION: VITAL SIGNS: Blood pressure 100/64, respirations 18, ____. GENERAL: Middle-aged female, obese. NECK: Supple. No mass. LUNGS: Equal breath sounds with few rhonchi. HEART: Regular rate and rhythm without appreciable murmurs.. ABDOMEN: Soft, nontender. EXTREMITIES: Positive for excoriation ____. NEUROLOGIC: Limited. HOSPITAL COURSE: The patient was admitted to medical floor. The patient was placed 1:1. ____ the patient was ____. The patient was ____. The patient was also ____ medications the patient has been stable. The patient is cleared for discharge. CONDITION ON DISCHARGE: Fair. DISCHARGE INSTRUCTIONS: The patient to continue current medical regimen. The patient to follow up with her primary care doctor. JOB# [id number]
[2016-06-27] MEDS ORDERED: Lactulose 10 Gm/15 mL 30mL UDC PO SCH (09:00)
== END 2016-06-26 15:18 | DRG 392 ==
LOC: ER 16:16 → MSI 19:10
PROVIDERS: ADMIT Internal Medicine; ATTEND Internal Medicine
DX: K59.00 Constipation, unspecified (principal); M62.82 Rhabdomyolysis; R56.9 Unspecified convulsions; F25.9 Schizoaffective disorder, unspecified; E55.9 Vitamin D deficiency, unspecified; E78.5 Hyperlipidemia, unspecified; J45.909 Unspecified asthma, uncomplicated; E03.9 Hypothyroidism, unspecified; E66.9 Obesity, unspecified; K21.9 Gastro-esophageal reflux disease without esophagitis; Z91.14 Patient's other noncompliance with medication regimen; Z68.33 Body mass index [BMI] 33.0-33.9, adult; Z93.3 Colostomy status
CPT/HCPCS: 36415-UA; 74000-TC; 80048-TC; 80053-TC; 80061-TC; 80074-90; 81001-TC; 81025-TC; 82140-TC; 82150-TC; 82550-TC; 82607-90; 82746-90; 83690-TC; 83735-TC; 83880-TC; 84443-TC; 84484-TC; 85025-TC; 86592-TC; 93005; 94760; 96374; C9113; J1630; J2060; J7030; Z7610